=== PATIENT | female | born 1950 | race Caucasian/White ===

== ENCOUNTER 2023-03-02 17:28 | Emergency (ER) | payer MEDICARE, SELFPAY ==
--- NOTE | ~2023-03-02 | XR_ITS ---
EXAMINATION: 1. Right shoulder. 2. Right humerus. 3. Right elbow. CLINICAL INFORMATION: Fall. Pain. COMPARISON: None. TECHNIQUE: 1. Right shoulder. 3 views 2. Right humerus. 2 views 3. Right elbow. 2 views FINDINGS: 1. Right shoulder. Transverse mildly displaced fracture through the surgical neck. Fracture extends into the humeral head which is nondisplaced. No dislocation. The acromioclavicular joint is normal. Orthopedic plate and screw visualized at lower cervical spine. Multilevel degenerative spondylosis of the spine. 2. Right humerus. No additional fracture of the mid or distal shaft of the right humerus. 3. Right elbow. Limited study. Due to the shoulder fracture as noted above only 2 oblique views of the elbow were obtained. No obvious displaced fracture. XR/XR shoulder RT min 2V IMPRESSION: 1. Right shoulder. Transverse fracture through the surgical neck and humeral head. 2. Right humerus. No additional fracture of the mid or distal shaft of the right humerus. 3. Right elbow. Limited study. No displaced fracture evident.
--- NOTE | ~2023-03-02 | CT_ITS ---
EXAMINATION: CT CHEST, ABDOMEN AND PELVIS WITH CONTRAST. CLINICAL INFORMATION: Trauma. COMPARISON: No pertinent prior studies are available for comparison. TECHNIQUE: Multidetector volumetric imaging was performed from the thoracic inlet through the pubic symphysis following administration of 85 mL Omnipaque 350 intravenous contrast. Sagittal and coronal reformatted images were obtained on the technologist's workstation. This CT examination was performed using dose optimization techniques as appropriate, variously including the following: *Automated exposure control *Adjustment of mA and/or kV according to patient size (this includes techniques or standardized protocols for targeted exams where dose is matched to indication/reason for exam; i.e. extremities or head) *Use of iterative reconstruction technique DLP: 448 and 969 mGy-cm FINDINGS: CHEST: Lung: No focal consolidation or significant groundglass disease. Central airways are patent. Mild bronchial wall thickening with equivocal minimal cylindrical bronchiectasis in the lower lungs. Bibasilar subsegmental atelectases. A 1.5 cm bullae is noted in the left lung base (8:355). There is a 0.4 cm groundglass nodule in the right upper lobe (8:139). Mediastinum: Normal heart size. Coronary artery calcifications are noted. No pericardial effusion. No hilar or mediastinal lymphadenopathy. Prior left thyroidectomy. Multinodular right lobe of the thyroid, largest nodule along the inferomedial lobe measuring approximately 2.6 cm. Pericardium/Pleura: No pleural effusion. No pleural mass or thickening. No pneumothorax. Chest Wall/Axilla: No lymphadenopathy by size criteria. ABDOMEN/PELVIS: Peritoneal Space: No free air or free fluid. Liver, Gallbladder, Biliary Tree: Decreased attenuation of liver parenchyma suggesting hepatic steatosis. No discrete focal liver lesion. Cholecystectomy with expected mild biliary ductal dilatation. Pancreas: Unremarkable. Spleen: Unremarkable. Adrenal Glands: There is a 1 cm right adrenal nodule along the lateral limb measuring 71 Hounsfield units, homogeneous in attenuation. Normal left adrenal gland. Kidneys and Ureters: Right extrarenal pelvis with mild pelviectasis measuring 2.8 cm in AP diameter. No hydronephrosis. Symmetric nephrograms. No significant perinephric fat stranding. Bladder: Unremarkable. Gastrointestinal Tract: Small hiatal hernia. The stomach and the small bowel are nondilated. Normal appendix. Colonic diverticulosis without significant pericolonic inflammatory changes. No evidence of bowel obstruction. Moderate colonic and rectal stool burden. Abdominal Wall: No significant hernia is appreciated. Lymphovascular Structures: Nonspecific upper mesentery fatty haziness (6:36). No lymphadenopathy by size criteria. Atherosclerotic disease. Abdominal aorta is normal in caliber. Pelvic Viscera: Nonspecific distention of the vagina with low density contents measuring simple fluid in attenuation. Osseous Structures: Right humeral neck fracture. No other acute traumatic sequela. Partially imaged anterior cervical fusion hardware. Degenerative changes of the spine. CT/CT abdomen pelvis w IV con IMPRESSION: Right humeral neck fracture. No other acute traumatic sequela. Additional incidental findings as follow: 1. Hepatic steatosis.Colonic diverticulosis but no evidence of acute diverticulitis. Small hiatal hernia. 2. Mild fatty haziness of the upper mesentery, nonspecific could be seen with mesenteric panniculitis. 3. Nonspecific dilatation of the vagina with low density content, correlate with history and physical examination. 4. 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 Based on the recommendations of the ACR Incidental Thyroid Findings Committee (JACR 2015 Nov; 12(2):143-50), further evaluation by thyroid ultrasound is recommended for a heterogeneously enlarged thyroid gland in patients that do not have limited life expectancy or significant co-morbidities, unless clinically warranted. 5. There is a 0.4 cm groundglass nodule in the right upper lobe. According to the UPDATED 2017 Fleischner Society recommendations, the advised followup imaging for a single pure ground-glass nodule measuring 6 mm or greater is: CT at 6-12 months to confirm persistence, then CT every 2 years until 5 years if it persists. 6. Indeterminate 1 cm right adrenal nodule, statistically most likely to represent an adrenal adenoma in the absence of clinical risk factors. Recommend a year follow-up adrenal washout CT examination for reevaluation.
--- NOTE | ~2023-03-02 | XR_ITS ---
EXAMINATION: 1. Right shoulder. 2. Right humerus. 3. Right elbow. CLINICAL INFORMATION: Fall. Pain. COMPARISON: None. TECHNIQUE: 1. Right shoulder. 3 views 2. Right humerus. 2 views 3. Right elbow. 2 views FINDINGS: 1. Right shoulder. Transverse mildly displaced fracture through the surgical neck. Fracture extends into the humeral head which is nondisplaced. No dislocation. The acromioclavicular joint is normal. Orthopedic plate and screw visualized at lower cervical spine. Multilevel degenerative spondylosis of the spine. 2. Right humerus. No additional fracture of the mid or distal shaft of the right humerus. 3. Right elbow. Limited study. Due to the shoulder fracture as noted above only 2 oblique views of the elbow were obtained. No obvious displaced fracture. XR/XR humerus RT IMPRESSION: 1. Right shoulder. Transverse fracture through the surgical neck and humeral head. 2. Right humerus. No additional fracture of the mid or distal shaft of the right humerus. 3. Right elbow. Limited study. No displaced fracture evident.
--- NOTE | ~2023-03-02 | CT_ITS ---
EXAMINATION: HEAD CT WITHOUT CONTRAST CERVICAL SPINE CT WITHOUT CONTRAST CLINICAL INFORMATION: Fall. Neck pain. Head strike. COMPARISON: None. TECHNIQUE: Contiguous axial imaging of the head was performed without the administration of IV contrast. Axial multidetector volumetric images were also performed through the cervical spine without intravenous contrast. Multiplanar reconstructed images in coronal and sagittal orientations were submitted. This CT examination was performed using dose optimization techniques as appropriate, variously including the following: *Automated exposure control *Adjustment of mA and/or kV according to patient size (this includes techniques or standardized protocols for targeted exams where dose is matched to indication/reason for exam; i.e. extremities or head) *Use of iterative reconstruction technique DOSE: 1047 mGy-cm FINDINGS: HEAD: There is no evidence of acute intracranial hemorrhage or territorial infarction. No abnormal mass-effect or midline shift. No extra-axial fluid collections. Richards to white matter differentiation is well preserved. The ventricles are normal in size and configuration. A few foci of hypoattenuation in the subcortical and periventricular white matter are most consistent with chronic microangiopathic changes. Calcific atherosclerosis is present within the cavernous segments of the internal carotid arteries. Minimal hyperostosis frontalis interna. 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 No acute osseous findings. The sinuses and mastoid air cells are clear. CERVICAL SPINE: C4 C6 ACDF plate is intact and appropriately positioned. There is solid osseous bridging across the C5-C6 interbody space. No appreciable osseous bridging at C4-C5, though the hardware remains intact and alignment appears appropriate. There is a chronic fracture deformity at the right articular pillar and lamina of C6 which may be related to prior fracture or developmental abnormality. No acute fractures are identified. Vertebral body heights are normal. Anterolisthesis of C6 on C7 is chronic and measures approximately 2 mm. Degenerative osteophytes and sclerosis are present at the atlantodental articulation, though normal alignment is maintained. Craniocervical junction is normal. Degenerative disc disease is moderate in severity at C6-C7 and more mild to moderate levels in the cervical spine. As noted above, there is abnormal offset at the right C5-C6 facet joints which may be related to prior trauma or developmental abnormality. There is moderate facet arthropathy on the right C3-C4 and more mild facet arthropathy at other levels. There is congenital central canal narrowing in the cervical spine between the levels of C3 and C7. Posterior disc osteophyte complexes at C3-C4 and C4-C5 likely contributing to at least moderate central canal narrowing. Multilevel neural foraminal encroachment is produced by uncovertebral osteophytes, most notably on the left at C5-C6 and C6-C7 and on the right at C4-C5 and C5-C6. No significant paravertebral soft tissue swelling. Atherosclerotic calcifications are present in the carotid arteries. Left thyroid lobe appears surgically absent. The left lung apex is not imaged. Right lung apex is unremarkable. CT/CT cervical spine wo IV con IMPRESSION: 1. No acute intracranial pathology. Mild chronic white matter microangiopathy. 2. No acute fracture or acute malalignment in the cervical spine. 3. 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 4. 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
--- NOTE | ~2023-03-02 | XR_ITS ---
EXAMINATION: 1. Right shoulder. 2. Right humerus. 3. Right elbow. CLINICAL INFORMATION: Fall. Pain. COMPARISON: None. TECHNIQUE: 1. Right shoulder. 3 views 2. Right humerus. 2 views 3. Right elbow. 2 views FINDINGS: 1. Right shoulder. Transverse mildly displaced fracture through the surgical neck. Fracture extends into the humeral head which is nondisplaced. No dislocation. The acromioclavicular joint is normal. Orthopedic plate and screw visualized at lower cervical spine. Multilevel degenerative spondylosis of the spine. 2. Right humerus. No additional fracture of the mid or distal shaft of the right humerus. 3. Right elbow. Limited study. Due to the shoulder fracture as noted above only 2 oblique views of the elbow were obtained. No obvious displaced fracture. XR/XR elbow RT 2V IMPRESSION: 1. Right shoulder. Transverse fracture through the surgical neck and humeral head. 2. Right humerus. No additional fracture of the mid or distal shaft of the right humerus. 3. Right elbow. Limited study. No displaced fracture evident.
[2023-03-02 17:37] VITALS: BP 150/92; BP 205/78; PULSE 61; PULSE 62; RESP 18; TEMP 36.3; O2SAT 98; BMI 39.0
--- NOTE | 2023-03-02 18:31 | ECG_ITS ---
Test Reason : fall Blood Pressure : / mmHG Vent. Rate : 064 BPM Atrial Rate : 064 BPM P-R Int : 200 ms QRS Dur : 068 ms QT Int : 420 ms P-R-T Axes : -03 -06 059 degrees QTc Int : 433 ms Normal sinus rhythm Normal ECG No previous ECGs available Referred By: Nona Huston Electronically Signed By:YUMIKO FONTAINE MD
--- NOTE | 2023-03-02 18:32 | ED.FALL ---
HPI - Fall General Chief Complaint: Fall Stated Complaint: FALL Time Seen by Provider: 03/02/23 17:48 Source: patient and EMS Mode of arrival: EMS Limitations: no limitations History of Present Illness HPI Narrative: This is a 72-year-old female presenting to the emergency department via ambulance status post trip and fall, patient reports just prior to arrival she was going and open air a, was using her walker, her walker got caught on the sidewalk, she fell onto her right side hitting her right shoulder against the glass window. Now reporting severe right shoulder pain, she reports her shoulder is hurting and humerus, reports she is unable to move the right upper extremity. Denies numbness and tingling. When she fell she did not hit her head or lose consciousness, not on blood thinners. She does report she hit her chest. Patient tells me she is able to wiggle her fingers on that side however unable to move that shoulder. Denies any preceding symptoms to fall such as chest pain and shortness of breath. Related Data Previous Rx's Medication Instructions Recorded morphine 15 mg immediate release 15 mg PO Q6H PRN pain 5 days #10 03/02/23 tablet tabs Allergies Allergy/AdvReac Type Severity Reaction Status Date / Time No Known Allergies Allergy Verified 03/02/23 17:44 Review of Systems Review of Systems: Constitutional : No Weight loss, No Fever, No Chills, No Fatigue, No Malaise ENT/Mouth : No sore throat, No Rhinorrhea Eyes: No Eye Pain, No Swelling, No Redness Cardiovascular : No Chest Pain, No SOB, No Dyspnea on Exertion, No Orthopnea, No Edema, No Palpitations Respiratory : No Cough, No Sputum, No Wheezing Gastrointestinal : No Nausea, No Vomiting, No Diarrhea, No Constipation, No abdominal Pain, No Hematochezia, No Melena Genitourinary : No Dysuria, No Urinary Frequency, No Hematuria, Musculoskeletal : + joint pain, No Myalgias, No Joint Swelling Skin : No Skin Lesions, No rash Neuro : No Weakness, No Numbness, No Dizziness, No Headache Psych : No Anxiety/Panic, No Depression All other systems reviewed and are negative Yes all other systems are reviewed and are negative [facility] Past Medical History Attestation statement: The following information was validated with the patient. Source: old records reviewed and nursing notes reviewed Social History Social History Alcohol intake: current Smoked in Last 30 Days: No Use of substances other than those prescribed or required for medical reasons: No Advance Directives: Yes Advance Directives Information Provided: No Advance Directives on File: No Physical Exam Vital Signs: Vital Signs: Last Vital Signs Temp 97.4 F 03/02/23 17:37 Pulse 61 03/02/23 17:37 Resp 16 03/02/23 22:05 BP 205/78 H 03/02/23 17:37 Pulse Ox 98 03/02/23 17:37 O2 Del Method Room Air 03/02/23 17:37 BMI result Body Mass Index 39.0 vss Appearance: Alert.? Oriented X3.? No acute distress.? Head: Normocephalic, atraumatic, no step-offs or deformities Eyes: Pupils equal, round and reactive to light.? ENT: Pharynx normal.? Neck: Normal inspection.? Neck supple.? CVS: Normal heart rate and rhythm.? Pulses normal.? Respiratory: No respiratory distress.? Breath sounds normal.? Abdomen: Soft and nontender.? Skin: Skin warm and dry.? Normal skin color.? Normal skin turgor.? Extremities: No lower extremity edema.? No calf ttp. 5/5 strength to left upper upper and bilateral lower extremities. Unable to assess strength right upper extremity secondary to pain, patient unable to move right shoulder, elbow. Normal sensation to bilateral upper extremities and 2+ radial pulses equal bilateral, capillary refill brisk less than 2 seconds to bilateral upper extremity digits. Back: No midline tenderness, no C-spine tenderness, full range of motion, no CVA tenderness bilaterally Neuro: Oriented X 3.? No motor deficit.? No sensory deficit. CN 2-12 intact Course Reevaluation(s) Reevaluation #1: Right shoulder with transverse fracture through the surgical neck and humeral head will place in a sling. Right humerus with no additional fractures of the mid or distal shaft of the right humerus. Normal right elbow. Pending labs, imaging. Time: 18:49 Reevaluation #2: Patient placed in a sling. Slight leukocytosis likely secondary to fall an acute fracture. Chemistry with slightly elevated BUN likely secondary to dehydration however tolerating p.o.. Slightly elevated transaminases however no abdominal tenderness on exam. Troponin negative, EKG nonischemic unlikely ACS. CT of the chest showing a right humeral neck fracture, no other acute traumatic sequelae. Incidental findings of hepatic steatosis, colonic diverticulosis, small hiatal hernia, mild fatty haziness of the right upper mesentery I do not suspect mesenteric panniculitis at this time, dilation of the vagina with low-density contact, no pelvic complaints will have her follow-up with PCP. 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 0.4 cm ground-glass nodule in the right upper lobe, will have her follow with PCP. Indeterminate 1 cm right adrenal nodule again will follow with PCP nothing to be done acutely. Spoke to patient's son who tells me that they are concerned as patient has been having multiple falls and she is in a lot of pain, plan at this time is for physical therapy and case management. Orders placed. At this time patient to be placed into observation to allow more time to be evaluated by Physical therapy and case management tomorrow morning. Time: 22:08 Medications Administered Discontinued Medications Generic Name Dose Route Start Last Admin Trade Name Freq PRN Reason Stop Dose Admin Hydromorphone HCl 0.5 mg 03/02/23 21:53 03/02/23 22:05 Hydromorphone Hcl 0.5 Mg/0.5 Ml Syringe IVPUSH 03/02/23 21:54 0.5 mg ONCE ONE Administration Protocol Iohexol 100 ml 03/02/23 20:37 03/02/23 20:37 Iohexol 350 Mg/Ml 100 Ml Infus..Btl IV 03/02/23 20:38 85 ml ONCE ONE Administration Morphine Sulfate 4 mg 03/02/23 18:25 03/02/23 19:41 Morphine Sulfate 4 Mg/Ml Cartridge IVPUSH 03/02/23 18:26 4 mg ONCE ONE Administration Protocol Medical Decision Making Medical Decision Making [facility] Narrative: 1820 72-year-old female presents status post mechanical fall with walker hitting her right shoulder against glass, reporting right shoulder and humerus pain this fall happened prior to arrival. No head strike or loss of consciousness. Not on blood thinners. Physical exam significant for No lower extremity edema.? No calf ttp. 5/5 strength to left upper upper and bilateral lower extremities. Unable to assess strength right upper extremity secondary to pain, patient unable to move right shoulder, elbow. Normal sensation to bilateral upper extremities and 2+ radial pulses equal bilateral, capillary refill brisk less than 2 seconds to bilateral upper extremity digits. Neuro nonfocal. Patient alert and oriented x4. Will rule out traumatic injury to shoulder, humerus, elbow. Also rule out traumatic injury to head, neck, chest due to fall. I do not suspect pneumothorax, flail chest. Concerns for possible shoulder fracture dislocation. No signs of neurovascular compromise or threatened limb. Plan at this time labs, imaging, EKG, troponin, x-ray of elbow, humerus and shoulder and CT of head, cervical spine and chest. Differential Diagnosis Differential Diagnoses: The differential diagnosis associated with the presentation includes Will rule out traumatic injury to shoulder, humerus, elbow. Also rule out traumatic injury to head, neck, chest due to fall. I do not suspect pneumothorax, flail chest. Concerns for possible shoulder fracture dislocation. No signs of neurovascular compromise or threatened limb. Admission/Observation Consideration of admission/observation: Escalation of care including admission/observation considered Not indicated Lab Data MDM Lab Attestation statement: I reviewed the patient's lab results. 03/02/23 21:19 03/02/23 21:19 Labs: Lab Results 03/02/23 03/02/23 03/02/23 Range/Units 21:19 21:19 21:19 WBC 13.5 H (4.8-10.8) X10*3/uL RBC 5.44 (4.20-5.50) X10*6/uL Hgb 15.5 (12.0-16.0) g/dl Hct 46.6 (37.0-47.0) % MCV 85.7 (80.0-98.0) fL MCH 28.5 (27.0-33.0) pg MCHC 33.3 (31.0-35.0) g/dl RDW 13.2 (11.0-16.0) % Plt Count 201 (160-400) X10*3/uL MPV 9.6 (9.4-12.3) fL Immature Gran % (Auto) 0.7 H (0.0-0.4) % Neut % (Auto) 79.0 H (45-73) % Lymph % (Auto) 12.7 L (20-40) % [place] % (Auto) 5.3 (2-11) % Eos % (Auto) 1.9 (0-4) % Baso % (Auto) 0.4 (0-2) % Lymph # (Auto) 1.7 (1.2-4.9) X10*3/uL [place] # (Auto) 0.7 (0.1-1.2) X10*3/uL Eos # (Auto) 0.3 (0.0-0.4) X10*3/uL Baso # (Auto) 0.1 (0.0-0.2) X10*3/uL Abs Immat Gran (auto) 0.09 H (0.00-0.03) X10*3/uL Absolute Neuts (auto) 10.7 H (2.0-8.3) x10*3/uL Absolute Nucleated RBC 0.000 (0.0-0.012) X10*3/uL Nucleated RBC % (auto) 0.0 (0.0-0.2) /100WBC Sodium 135 (135-145) mmol/L Potassium 4.5 (3.3-5.1) mmol/L Chloride 99 (96-108) mmol/L Carbon Dioxide 24 (22-29) mmol/L Anion Gap 17 (12-20) BUN 21 H (9-16) mg/dL Creatinine 0.89 (0.5-1.4) mg/dL Estim Creat Clear Calc 65.3 Estimated GFR > 60 Random Glucose 243 H (60-115) mg/dL Calcium 10.0 (8.4-10.2) mg/dL Total Bilirubin 0.5 (0.0-1.0) mg/dL AST 37 H (5-31) U/L ALT 44 H (0-31) U/L Alkaline Phosphatase 117 (39-117) U/L Troponin I High Sens 2.8 (<3.5-17.0) ng/L Total Protein 7.3 (6.5-8.0) g/dL Albumin 4.6 (3.5-5.0) g/dL Independent Interpretation I performed an independent interpretation of an: Plain X-Ray Radiology Impression Discussion of test interpretation with radiology: I have reviewed the radiologist's reading. Core Measures AMI core measures followed: Yes Measure exclusions: not indicated Critical Care Time Critical Care Time Critical Care Time: No Discharge Plan Discharge Clinical Impression: Fracture of humerus, Fall, Physical deconditioning Patient Disposition: Home, Self-Care Instructions: How to Use a Sling (ED), Fall Prevention for Older Adults (ED), Fall Prevention (ED) Additional Instructions: Take your medications as prescribed. If you were prescribed antibiotics today, it is important that you take your medication to their entirety, do not skip any doses, do not finish them early. Follow-up with your primary care provider this week. Return to the emergency department with new or worsening symptoms. Such as fevers, chills, chest pain, shortness of breath, nausea, vomiting, dizziness, headache, vision changes, lethargy In case of emergency call 911 ?XR/XR shoulder RT min 2V IMPRESSION: 1.? Right shoulder. Transverse fracture through the surgical neck and humeral head. 2.? Right humerus. No additional fracture of the mid or distal shaft of the right humerus. 3.? Right elbow. Limited study. No displaced fracture evident. ?CT/CT chest w IV con IMPRESSION: Right humeral neck fracture. No other acute traumatic sequela. Additional incidental findings as follow: ? 1.? Hepatic steatosis.Colonic diverticulosis but no evidence of acute diverticulitis. Small hiatal hernia. 2.? Mild fatty haziness of the upper mesentery, nonspecific could be seen with mesenteric panniculitis. 3.? Nonspecific dilatation of the vagina with low density content, correlate with history and physical examination. 4.? 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 Based on the recommendations of the ACR Incidental Thyroid Findings Committee (JACR 2015 Nov; 12(2):143-50), further evaluation by thyroid ultrasound is recommended for a heterogeneously enlarged thyroid gland in patients that do not have limited life expectancy or significant co-morbidities, unless clinically warranted. 5.? There is a 0.4 cm groundglass nodule in the right upper lobe. According to the UPDATED 2017 Fleischner Society recommendations, the advised followup imaging for a single pure ground-glass nodule measuring 6 mm or greater is: CT at 6-12 months to confirm persistence, then CT every 2 years until 5 years if it persists. 6.? Indeterminate 1 cm right adrenal nodule, statistically most likely to represent an adrenal adenoma in the absence of clinical risk factors. Recommend a year follow-up adrenal washout CT examination for reevaluation. Prescriptions: New morphine 15 mg tablet 15 mg PO Q6H PRN (Reason: pain) 5 Days Qty: 10 0RF Rx Instructions: Partial Fill upon patient request. Referrals: Dominick Kelly [Other] [facility] [Provider Group] - 2 days Stand Alone Forms: Work/School Release
[2023-03-02 19:41] VITALS: RESP 16
[2023-03-02] MEDS: Morphine Sulfate 4 MG/ML CARTRIDGE IVPUSH (19:41)
[2023-03-02] MEDS: iohexoL 350 MG/ML 100 ML INFUS..BTL IV (20:37)
[2023-03-02 21:24] LABS: MANUAL DIFF FLAG NO
[2023-03-02 21:27] LABS: Basophils Absolute Auto 0.1 X10*3/uL (0.0-0.2); Basophils Percent Auto 0.4 % (0-2); Eosinophils Absolute Auto 0.3 X10*3/uL (0.0-0.4); Eosinophils Percent Auto 1.9 % (0-4); Hematocrit 46.6 % (37.0-47.0); Hemoglobin 15.5 g/dl (12.0-16.0); Imm Gran Abs Auto 0.09 X10*3/uL (0.00-0.03); Imm Gran Pct Auto 0.7 % (0.0-0.4); Lymphocytes Absolute Auto 1.7 X10*3/uL (1.2-4.9); Lymphocytes Percent Auto 12.7 % (20-40); Mean Corpuscular HGB Conc 33.3 g/dl (31.0-35.0); Mean Corpuscular Hemoglobin 28.5 pg (27.0-33.0); Mean Corpuscular Volume 85.7 fL (80.0-98.0); Mean Platelet Volume 9.6 fL (9.4-12.3); Monocytes Absolute Auto 0.7 X10*3/uL (0.1-1.2); Monocytes Percent Auto 5.3 % (2-11); Neutrophils Absolute Auto 10.7 x10*3/uL (2.0-8.3); Platelet Count 201 X10*3/uL (160-400); Red Blood Count 5.44 X10*6/uL (4.20-5.50); Red Cell Distribution Width 13.2 % (11.0-16.0); White Blood Count 13.5 X10*3/uL (4.8-10.8)
[2023-03-02 21:43] LABS: Alanine Aminotransferase 44 U/L (0-31); Albumin Level 4.6 g/dL (3.5-5.0); Alkaline Phosphatase 117 U/L (39-117); Anion Gap 17 (12-20); Aspartate Amino Transferase 37 U/L (5-31); Bilirubin Total 0.5 mg/dL (0.0-1.0); Blood Urea Nitrogen 21 mg/dL (9-16); Carbon Dioxide 24 mmol/L (22-29); Chloride 99 mmol/L (96-108); Creatinine Clr Calc Pharmacy 65.3; Estimated Glomerular Filt Rate > 60; Glucose Random 243 mg/dL (60-115); Potassium 4.5 mmol/L (3.3-5.1); Sodium 135 mmol/L (135-145); Total Protein 7.3 g/dL (6.5-8.0)
[2023-03-02 21:48] LABS: Troponin-I High Sensitivity 2.8 ng/L (<3.5-17.0)
[2023-03-02 22:05] VITALS: RESP 16
[2023-03-02] MEDS: HYDROmorphone HCl 0.5 MG/0.5 ML SYRINGE IVPUSH (22:05)
--- NOTE | 2023-03-02 22:42 | MHC.CM.ED ---
Addendum entered by Elana Ray 03/03/23 07:51: REFERRAL TO [facility] ADDED PT THERESAAL STILL PENDING Addendum entered by Pilar Muhammad 03/02/23 23:08: Pt first choice for STR is acute rehab facility. Referrals made to 3 facilities. Did not refer to STR pending Acute rehab offers. [facility] is second choice, is STR. Original Note: CM received consult from Betty HOPKINS. Pt lives in [place], [place]. and was visiting her son for the weekend. Pt sustained a fall; was using her walker. Son, Cristofer, said she has had multiple falls. Pt lives with her sister. Uses a walker. Has MOW and is working on [employer] through [facility] [employer] in [place]. [employer] x3. HCP at Home. HCP#1/son/DANYEL Solano ([phone]) and HCP#2/son Cristofer Solano ([phone]). Cristofer is local in [facility]. Pt has home services through [facility] and [facility] with SN, PT and OT. Pt tells CM that SN is complete next week. PT is pending. Pt is agreeable to STR. Would like services near her home of [place]. 1st choice is [facility] in [place] and 2nd choice is [facility] In [place]. Will place referrals. CM contact card given to sonCristofer. Pt has [employer] Medicare. Pt and family aware that insurance auth may not be obtained until Sunday due to insurance business hours. CM will follow for discharge planning.
[2023-03-02 23:10] VITALS: BP 195/81; PULSE 73; RESP 16; TEMP 36.5; O2SAT 95
--- NOTE | 2023-03-03 00:30 | PC.NURSE ---
This writer producer assumed care of this Pt at 2300. Pt A&Ox4, reports 8/10 right shoulder pain. Respiratory equal, non labored. Sling is applied, purewick is in place. [place] and PO fluids provided. BP noted to be elevated, provider Chloé Huston notified. Med rec was done by this writer producer. Pt will be transported to ED overflow, pt aware of plan.
[2023-03-03 01:23] VITALS: BP 162/60; PULSE 67; RESP 14; TEMP 36.3; O2SAT 93
[2023-03-03 01:28] LABS: Glucose, Whole Blood 280 mg/dL (60-115)
[2023-03-03] MEDS: HYDROmorphone HCl 0.5 MG/0.5 ML SYRINGE IVPUSH (02:52)
[2023-03-03 05:46] VITALS: BP 202/85; PULSE 69; RESP 17; TEMP 36.8; O2SAT 95
[2023-03-03] MEDS: Morphine Sulfate Immed Release 15 MG TABLET PO ×3 (05:54→20:47)
[2023-03-03] MEDS: Acetaminophen 325 MG TABLET 975 MG PO ×3 (05:54→16:11)
[2023-03-03] MEDS: Omeprazole 20 MG CAPSULE.DR PO (05:54)
[2023-03-03 06:00] VITALS: BP 180/76
--- NOTE | 2023-03-03 06:31 | PC.NURSE ---
Assumed care for patient, presented to ED with right humeral fx from fall. Patient c/o pain , medicated with pain medication with good effect. BP 180/76 Provider notified. BP meds scheduled for this am. VSS. Patient resting comfortably at present.
[2023-03-03 07:24] LABS: Glucose, Whole Blood 315 mg/dL (60-115)
[2023-03-03] MEDS: Insulin Glargine,Hum.rec.anlog 100 UNIT/ML 10 ML VIAL 21 UNIT SUBCUT (07:46)
--- NOTE | 2023-03-03 07:46 | PHA.MEDREC ---
Pharmacy Consult ? Medication Reconciliation Pharmacy has completed the medication reconciliation. Reviewed med rec done by nursing (Julia).
[2023-03-03] MEDS: Gabapentin 400 MG CAPSULE 800 MG PO ×4 (07:47→20:45)
[2023-03-03] MEDS: amLODIPine Besylate 5 MG TABLET PO (07:47)
[2023-03-03] MEDS: buPROPion HCl XL 150 MG TAB.ER.24H PO (07:47)
[2023-03-03] MEDS: Valsartan 80 MG TABLET PO (07:48)
[2023-03-03] MEDS: Atorvastatin Calcium 80 MG TABLET PO (07:48)
[2023-03-03] MEDS: Sertraline HCL 100 MG TABLET PO ×2 (07:48→20:46)
[2023-03-03] MEDS: hydrALAZINE HCl 25 MG TABLET PO ×2 (07:48→20:46)
[2023-03-03 09:05] VITALS: BP 184/80; PULSE 62; RESP 18; TEMP 36.2; O2SAT 94
[2023-03-03] MEDS: Docusate Sodium 100 MG CAPSULE PO ×2 (10:31→20:49)
[2023-03-03 13:24] LABS: Glucose, Whole Blood 441 mg/dL (60-115)
[2023-03-03 14:00] VITALS: BP 100/49; PULSE 68; RESP 18; TEMP 37.2; O2SAT 91
[2023-03-03 16:56] LABS: Glucose, Whole Blood 338 mg/dL (60-115)
[2023-03-03] MEDS: Pramipexole Di-HCL 0.25 MG TABLET 0.5 MG PO (18:30)
--- NOTE | 2023-03-03 19:00 | PC.NURSE ---
Report received from RNMaryann about pts present condition, the reason for pt coming to the ED and what the care plan was in the ED. Pt is resting in bed, denies any CP, SOB, N/V/D or feeling of faint.
[2023-03-03 21:25] VITALS: BP 114/56; PULSE 66; RESP 18; TEMP 36.7; O2SAT 92
[2023-03-04] MEDS: Omeprazole 20 MG CAPSULE.DR PO (06:48)
[2023-03-04] MEDS: Morphine Sulfate Immed Release 15 MG TABLET PO (06:49)
[2023-03-04] MEDS: hydrALAZINE HCl 25 MG TABLET PO ×2 (09:49→21:05)
[2023-03-04] MEDS: Sertraline HCL 100 MG TABLET PO ×2 (09:49→21:04)
[2023-03-04] MEDS: Atorvastatin Calcium 80 MG TABLET PO (09:49)
[2023-03-04] MEDS: Docusate Sodium 100 MG CAPSULE PO ×2 (09:49→21:05)
[2023-03-04] MEDS: Acetaminophen 325 MG TABLET 975 MG PO ×2 (09:49→16:06)
[2023-03-04] MEDS: Gabapentin 400 MG CAPSULE 800 MG PO ×4 (09:49→21:04)
[2023-03-04] MEDS: buPROPion HCl XL 150 MG TAB.ER.24H PO (09:49)
[2023-03-04] MEDS: amLODIPine Besylate 5 MG TABLET PO (09:49)
[2023-03-04] MEDS: Valsartan 80 MG TABLET PO (09:50)
[2023-03-04] MEDS: Insulin Glargine,Hum.rec.anlog 100 UNIT/ML 10 ML VIAL 21 UNIT SUBCUT (09:50)
[2023-03-04 12:48] LABS: Glucose, Whole Blood 439 mg/dL (60-115)
[2023-03-04] MEDS: Insulin Lispro 100 UNIT/ML 3 ML VIAL SUBCUT ×3 (13:17→21:31)
[2023-03-04 14:00] VITALS: BP 133/67; PULSE 73; RESP 20; TEMP 36.5; O2SAT 94
[2023-03-04 18:12] LABS: Glucose, Whole Blood 417 mg/dL (60-115)
[2023-03-04] MEDS: Pramipexole Di-HCL 0.25 MG TABLET 0.5 MG PO (21:05)
[2023-03-04 21:25] LABS: Glucose, Whole Blood 395 mg/dL (60-115)
[2023-03-04 22:00] VITALS: BP 125/56; PULSE 71; RESP 16; TEMP 36.4; O2SAT 95
--- NOTE | 2023-03-05 02:21 | MHC.EDTECH ---
Patient wet nurse assist patient on commode and this tech changed the bed sheet, put a colleen gown, and purewick on patient.
[2023-03-05] MEDS: Acetaminophen 325 MG TABLET 975 MG PO ×3 (05:30→22:19)
[2023-03-05] MEDS: Omeprazole 20 MG CAPSULE.DR PO (05:30)
[2023-03-05 06:00] VITALS: BP 134/66; PULSE 81; RESP 16; TEMP 36.8; O2SAT 95
[2023-03-05 07:51] VITALS: BP 154/70; PULSE 78; RESP 20; TEMP 37; O2SAT 92
[2023-03-05 08:10] LABS: Glucose, Whole Blood 375 mg/dL (60-115)
[2023-03-05] MEDS: amLODIPine Besylate 5 MG TABLET PO (09:17)
[2023-03-05] MEDS: Gabapentin 400 MG CAPSULE 800 MG PO ×4 (09:17→20:26)
[2023-03-05] MEDS: Sertraline HCL 100 MG TABLET PO ×2 (09:17→20:26)
[2023-03-05] MEDS: hydrALAZINE HCl 25 MG TABLET PO ×2 (09:17→20:26)
[2023-03-05] MEDS: Insulin Glargine,Hum.rec.anlog 100 UNIT/ML 10 ML VIAL 25 UNIT SUBCUT (09:17)
[2023-03-05] MEDS: Atorvastatin Calcium 80 MG TABLET PO (09:17)
[2023-03-05] MEDS: buPROPion HCl XL 150 MG TAB.ER.24H PO (09:17)
[2023-03-05] MEDS: Insulin Lispro 100 UNIT/ML 3 ML VIAL SUBCUT ×5 (09:18→20:25)
[2023-03-05] MEDS: Docusate Sodium 100 MG CAPSULE PO ×2 (09:19→20:26)
--- NOTE | 2023-03-05 09:23 | PC.NURSE ---
pt is a/o x 3 no sob/taryn noted speaks in full sentences. lungs - mynor upper lobes cta. mynor lower lobes - dimished. heart sounds - regular. bs + x 4 quads. abd soft and non-tender. no edema noted. pt aware of plan of care.
--- NOTE | 2023-03-05 09:25 | PC.NURSE ---
pt c/o 07/08 r shoulder pain. r arm in a sling, +cms to r arm.
--- NOTE | 2023-03-05 10:37 | MHC.CM.ED ---
Addendum entered by Gillian Ley 03/05/23 13:16: Patient's on at bedside. Requesting to speak to . Met with patient and son, Cristofer. Explained [facility] is in the process of obtaining insurance auth. All discharge questions answered. Cristofer verbalized understanding. Original Note: Patient remains in ER overflow. None of the acute rehab referrals are able to offer a bed. [facility] is able to offer a bed and is in the process of obtaining insurance auth. Copy of HCP obtained from [facility]. Covid test is ordered and pending. Continue to monitor for d/c needs.
[2023-03-05] MEDS: polyethylene glycoL 3350 17 GM POWD.PACK PO (11:18)
[2023-03-05] MEDS: Valsartan 80 MG TABLET PO (11:18)
[2023-03-05] MEDS: Morphine Sulfate Immed Release 15 MG TABLET PO ×2 (11:18→20:27)
[2023-03-05 11:40] LABS: COVID-19 Test Negative (Negative); IDNOW Serial# 9DB6401D
[2023-03-05 11:47] LABS: Glucose, Whole Blood 401 mg/dL (60-115)
--- NOTE | 2023-03-05 13:06 | PC.NURSE ---
Pt assisted from bedside chair to commode. Pt cleaned and 2 assist to the bed. Purewick reinserted
--- NOTE | 2023-03-05 13:07 | PC.NURSE ---
pt's son is at bedside. pt/son aware of plan of care.
--- NOTE | 2023-03-05 13:45 | MHC.EDTECH ---
pt had Large Bm and Rn aware
[2023-03-05 14:09] VITALS: BP 144/62; PULSE 70; RESP 22; TEMP 36.6; O2SAT 96
[2023-03-05 16:17] LABS: Glucose, Whole Blood 390 mg/dL (60-115)
[2023-03-05 17:02] VITALS: BP 160/72; PULSE 72; RESP 17; TEMP 36.6; O2SAT 96
[2023-03-05 20:04] LABS: Glucose, Whole Blood 355 mg/dL (60-115)
[2023-03-05 20:14] VITALS: BP 165/82; PULSE 75; RESP 18; TEMP 36.4; O2SAT 94
--- NOTE | 2023-03-05 20:32 | PC.NURSE ---
POC 355, 10 units humalog per sliding scale. ED physician notified, no additional orders at this time.
[2023-03-05] MEDS: Pramipexole Di-HCL 0.25 MG TABLET 0.5 MG PO (22:18)
[2023-03-06 05:43] VITALS: BP 150/67; PULSE 72; RESP 16; TEMP 36.5; O2SAT 94
[2023-03-06] MEDS: Morphine Sulfate Immed Release 15 MG TABLET PO (05:51)
[2023-03-06] MEDS: Omeprazole 20 MG CAPSULE.DR PO (05:52)
[2023-03-06 07:33] VITALS: BP 148/68; PULSE 68; RESP 14; TEMP 36.4; O2SAT 92
[2023-03-06 07:48] LABS: Glucose, Whole Blood 304 mg/dL (60-115)
[2023-03-06] MEDS: Gabapentin 400 MG CAPSULE 800 MG PO (07:50)
[2023-03-06] MEDS: Docusate Sodium 100 MG CAPSULE PO (07:51)
[2023-03-06] MEDS: amLODIPine Besylate 5 MG TABLET PO (07:51)
[2023-03-06] MEDS: Atorvastatin Calcium 80 MG TABLET PO (07:51)
[2023-03-06] MEDS: buPROPion HCl XL 150 MG TAB.ER.24H PO (07:51)
[2023-03-06] MEDS: Sertraline HCL 100 MG TABLET PO (07:51)
[2023-03-06] MEDS: Acetaminophen 325 MG TABLET 975 MG PO (07:51)
[2023-03-06] MEDS: hydrALAZINE HCl 25 MG TABLET PO (07:52)
[2023-03-06] MEDS: Insulin Glargine,Hum.rec.anlog 100 UNIT/ML 10 ML VIAL 30 UNIT SUBCUT (07:52)
[2023-03-06] MEDS: Insulin Lispro 100 UNIT/ML 3 ML VIAL SUBCUT ×2 (07:53)
[2023-03-06] MEDS: Valsartan 80 MG TABLET PO (08:08)
--- NOTE | 2023-03-06 08:40 | MHC.CM.ED ---
Pt medically cleared for discharge for STR at [facility], [facility]/Marie booked for transport for 10am today.
--- NOTE | 2023-03-06 10:56 | PC.NURSE ---
pt ate breakfast. alert speech clear, nad, sling in place, report called to [place] [facility], report to ems,
== END 2023-03-06 10:59 ==
PROVIDERS: Physician Assistant; Emergency Provider Emergency Medicine; PCP Family Medicine Adult Medicine
DX: S42.301A Unspecified fracture of shaft of humerus, right arm, initial encounter for closed fracture (principal); R51.9 Headache, unspecified; M54.2 Cervicalgia; R26.81 Unsteadiness on feet; M54.6 Pain in thoracic spine; M79.601 Pain in right arm; R94.31 Abnormal electrocardiogram [ECG] [EKG]; R10.30 Lower abdominal pain, unspecified; W01.10XA Fall on same level from slipping, tripping and stumbling with subsequent striking against unspecified object, initial encounter; Y93.9 Activity, unspecified; Y92.9 Unspecified place or not applicable; Y99.9 Unspecified external cause status; Z20.822 Contact with and (suspected) exposure to COVID-19; Z20.828 Contact with and (suspected) exposure to other viral communicable diseases; Z79.899 Other long term (current) drug therapy
CPT/HCPCS: 36415; 70450; 71260; 72125; 73030; 73060; 73070; 74177; 80053; 82947; 84484; 85025; 87635; 93005; 96374; 96375; 96376; 97162; 97530; 99285; J1170; J2270; Q9967